=== PATIENT | male | born 1960 | race Caucasian/White ===

== ENCOUNTER 2022-06-10 04:38 | Day surgery (SDC) | payer BC ==
[2022-06-07 08:26] VITALS: BMI 34.5
[2022-06-10 13:17] VITALS: BP 130/83; PULSE 66; RESP 17
[2022-06-10 13:53] VITALS: TEMP 98
== END 2022-06-10 13:25 | disposition home or self-care (01) ==
LOC: JASU-ENDO 04:38
PROVIDERS: ATTEND Internal Medicine Gastroenterology
PROC: 0DJD8ZZ Inspection of Lower Intestinal Tract, Via Natural or Artificial Opening Endoscopic (ICD-10-PCS; principal; 2022-06-10 11:45)
DX: Z12.11 Encounter for screening for malignant neoplasm of colon (principal); K57.30 Diverticulosis of large intestine without perforation or abscess without bleeding; K64.8 Other hemorrhoids; Z86.010 Personal history of colon polyps
CPT/HCPCS: 82962

== ENCOUNTER 2022-12-16 10:29 | Emergency (ER) | payer OTHER, BC ==
[2022-12-16 10:38] VITALS: BP 129/82; PULSE 71; RESP 18; TEMP 97.8; BMI 30.9
[2022-12-16] MEDS ORDERED: LIDOCAINE 5% TOPICAL PATCH TP ONE (11:27)
[2022-12-16] MEDS ORDERED: KETOROLAC TROMETHAMINE 30 MG/1 ML VIAL IM ONE (11:27)
[2022-12-16] MEDS ORDERED: LIDOCAINE 5% TOPICAL PATCH ONE (11:36)
[2022-12-16] MEDS ORDERED: KETOROLAC TROMETHAMINE 30 MG/1 ML VIAL ONE (11:36)
== END 2022-12-16 12:28 | disposition home or self-care (01) ==
LOC: JERFT 10:29
PROC: 3E0233Z Introduction of Anti-inflammatory into Muscle, Percutaneous Approach (ICD-10-PCS; principal; 2022-12-16)
DX: S33.5XXA Sprain of ligaments of lumbar spine, initial encounter (principal); S46.819A Strain of other muscles, fascia and tendons at shoulder and upper arm level, unspecified arm, initial encounter; M25.561 Pain in right knee; V49.40XA Driver injured in collision with unspecified motor vehicles in traffic accident, initial encounter
CPT/HCPCS: 72100-TC-FY; 73030-TC-LT-FY; 73030-TC-RT-FY; 73562-TC-RT-FY; 99285-25